=== PATIENT | female | born 1985 | race Two or more races ===

== ENCOUNTER 2021-07-25 12:20 | Emergency (ER) | payer MEDICAID, OTHER ==
[~2021-07-25] VITALS: Ht 182.9 cm; Wt 76.7 kg
[2021-07-25 12:23] VITALS: BP 113/57
== END 2021-07-25 15:31 | disposition left against medical advice (07) ==
LOC: ER 12:20
DX: R10.13 Epigastric pain (principal); R19.7 Diarrhea, unspecified; Z53.21 Procedure and treatment not carried out due to patient leaving prior to being seen by health care provider